=== PATIENT | female | born 1980 | race Caucasian/White ===

== ENCOUNTER → 2016-12-16 | Outpatient (CLI) | payer MEDICAID | LOC: MW.CHOBGYN 10:39 | PROVIDERS: ATTEND Advanced Practice Midwife | DX: Z32.00 Encounter for pregnancy test, result unknown (principal) | CPT/HCPCS: 81025 ==

== ENCOUNTER 2017-08-06 06:35 | Day surgery (SDC) | payer MEDICAID ==
[2017-08-06] MEDS ORDERED: Lactated Ringers 1,000 ML IV SCH (07:00)
[2017-08-06] MEDS ORDERED: Lidocaine 2% 5 ML SDV ONE (07:15)
[2017-08-06] MEDS ORDERED: Midazolam 1 MG/ML 2 ML SDV ONE (07:15)
[2017-08-06] MEDS ORDERED: fentaNYL 100 MCG/2 ML SDV ONE (07:15)
[2017-08-06] MEDS ORDERED: Propofol 200 MG/20 ML SDV ONE ×2 (07:15→08:23)
--- NOTE | 2017-08-06 07:18 | PCM.PREANE ---
Preanesthetic Assessment - Anesthesia/Transfusion/Family Hx Anesthesia History: Prior Anesthesia Without Reaction Family History of Anesthesia Reaction: No Transfusion History: No Prior Transfusion(s) Intubation History: Unknown - Review of Systems General: No Symptoms Pulmonary: No Symptoms Cardiovascular: No Symptoms Gastrointestinal: No Symptoms Neurological: No Symptoms Other: Reports: None - Physical Assessment O2 Sat by Pulse Oximetry: 97 Respiratory Rate: 18 Vital Signs: Last Vital Signs Temp 36.2 C 08/06/17 07:08 Pulse 82 08/06/17 07:08 Resp 18 08/06/17 07:08 BP 103/58 L 08/06/17 07:08 Pulse Ox 97 08/06/17 07:08 Height: 1.57 m Weight: 68.492 kg ASA Class: 1 Mental Status: Alert & Oriented x3 Airway Class: Mallampati = 2 Dentition: Reports: Normal Dentition Thyro-Mental Finger Breadths: 3 Mouth Opening Finger Breadths: 3 ROM/Head Extension: Full Lungs: Clear to Auscultation, Normal Respiratory Effort Cardiovascular: Regular Rate, Regular Rhythm - Lab Values: Laboratory Last Values Urine HCG, Qual NEGATIVE (NEGATIVE) 08/06/17 06:38 - Allergies Allergies/Adverse Reactions: Allergies Allergy/AdvReac Type Severity Reaction Status Date / Time No Known Allergies Allergy Verified 01/20/14 16:24 - Blood Blood Available: No - Anesthesia Plan Pre-Op Medication Ordered: None - Acknowledgements Anesthesia Type Planned: MAC Pt an Appropriate Candidate for the Planned Anesthesia: Yes Alternatives and Risks of Anesthesia Discussed w Pt/Guardian: Yes Pt/Guardian Understands and Agrees with Anesthesia Plan: Yes PreAnesthesia Questionnaire HEENT History: Reports: None Respiratory History: Reports: Other (See Below) Other Respiratory History: asthma as a child Gastrointestinal History: Reports: Hepatitis Other Gastrointestinal History: states hepatitis as a child Genitourinary History: Reports: None 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: - Past Surgical History Head Surgeries/Procedures: Reports: None HEENT Surgical History: Reports: Tonsillectomy Female Surgical History: Reports: Tubal Ligation Musculoskeletal Surgical History: Reports: Other (See Below) Other Musculoskeletal Surgeries/Procedures:: wrist surgery - SUBSTANCE USE Smoking Status *Q: Light Tobacco Smoker (5 cigarettes per day) Days Per Week of Alcohol Use: 0 Recreational Drug Use History: No - HOME MEDS Home Medications: Home Meds Gabapentin [Neurontin] 3 tab PO DAILY 08/04/17 [History] traMADol HCl [Tramadol HCl] 1 tab PO ASDIRECTED PRN 08/04/17 [History] - CURRENT (IN HOUSE) MEDS Current Meds: Current Medications Hydrocodone Bitart/Acetaminophen ([place] 325-5 Mg) 1 tab PO Q4H PRN PRN Reason: Pain Bupivacaine HCl/Epinephrine Bitart (Marcaine 0.25%/Epinephrine 1:200,000) 10 ml INJECT ONETIME ONE Stop: 08/06/17 08:01 Cefazolin Sodium/Dextrose 2 gm (/ Premix) 50 mls @ 100 mls/hr IV ONETIME ONE Stop: 08/06/17 07:59 Lactated Ringer's (Ringers, Lactated) 1,000 mls @ 125 mls/hr IV ASDIRECTED JAVIER Last Admin: 08/06/17 07:10 Dose: 125 mls/hr
[2017-08-06] MEDS ORDERED: Bupivacaine 25%/EPINEPHrine/PF 30 ML ONE (07:22)
[2017-08-06] MEDS ORDERED: ceFAZolin 2 GM in Premix Bag 1 BAG IV ONE (07:30)
[2017-08-06] MEDS ORDERED: Bupivacaine 0.25%/EPINEPHrine 1:200,000 10 ML SDV INJECT ONE (08:00)
[2017-08-06] MEDS ORDERED: fentaNYL 100 MCG/2 ML SDV IVPUSH PRN (08:42)
--- NOTE | 2017-08-06 08:55 | PCM.OPNOTE ---
- General Post-Op/Procedure Note Date of Surgery/Procedure: 08/06/17 Operative Procedure(s): right carpal tunnel release Pre Op Diagnosis: right carpal tunnel syndrome Post-Op Diagnosis: Same Anesthesia Technique: Local, MAC Primary Surgeon: Michelle Torres Telephone Solicitor Supervisor: Carolee Lund Complications: None Condition: Good
[2017-08-06] MEDS ORDERED: Acetaminophen/HYDROcodone 325-5 MG Tab PO PRN (09:00)
[2017-08-06 10:39] VITALS: BP 100/64
--- NOTE | 2017-08-06 18:37 | OR ---
SURGEON: ANDREW ODOM MD DATE OF PROCEDURE: 08/06/2017 PREOPERATIVE DIAGNOSIS: Right carpal tunnel syndrome. POSTOPERATIVE DIAGNOSIS: Right carpal tunnel syndrome. PROCEDURE: Right carpal tunnel release. DECAL CUTTER: None. ANESTHESIA: Local MAC. INDICATIONS: Ms. Anthony is a 36-year-old female who was seen today for right carpal tunnel syndrome. Risks and benefits of release were discussed with her and she was in agreement to proceed. Risks were including, but not limited to, bleeding, infection, damage to underlying or overlying structures, possible need for future interventions, possible scarring. PROCEDURE IN DETAIL: After informed consent was obtained and placed on the chart, the patient was brought to the operating theater and laid in supine position. After adequate local MAC anesthesia was obtained, the area was prepped and draped and a time- out was completed to confirm side and site. Attention was then paid to exsanguination of the arm and insufflation of the tourniquet to 200 mmHg once 0.25% Marcaine with epinephrine had been injected into the area. Once adequately prepared, a 15 blade was then used to dissect through the skin and subcutaneous tissues until breach of the ligament. Once the ligament was breached, dissection was carried distally and proximally under direct visualization. It was irrigated and closed using a 5-0 nylon stitch in a horizontal mattress fashion. It was dressed with Xeroform, fluffs, Kerlix, and a gauze dressing and a 2-inch Eric wrap. The patient tolerated this well. All counts and needles were correct at the end of the case. FOLLOWUP INSTRUCTIONS: The patient will see us in 10 to 14 days, sooner if any problems, questions, or concerns. She was given a prescription for pain control. HEGGTHE / LIZETTL /[id number]
== END 2017-08-06 10:15 | disposition home or self-care (01) ==
LOC: MW.SDS 06:35
PROVIDERS: ATTEND Plastic Surgery
DX: G56.03 Carpal tunnel syndrome, bilateral upper limbs (principal); M25.511 Pain in right shoulder; F17.210 Nicotine dependence, cigarettes, uncomplicated; G89.29 Other chronic pain; Z79.899 Other long term (current) drug therapy; Z90.89 Acquired absence of other organs; Z98.51 Tubal ligation status
CPT/HCPCS: 64721; 81025; A9270; J2250; J3010; J7120; 01810; J2704

== ENCOUNTER 2017-09-17 06:35 | Day surgery (SDC) | payer MEDICAID ==
--- NOTE | 2017-09-17 07:23 | PCM.PREANE ---
Preanesthetic Assessment - Anesthesia/Transfusion/Family Hx Anesthesia History: Prior Anesthesia Without Reaction Family History of Anesthesia Reaction: No Transfusion History: No Prior Transfusion(s) Intubation History: Unknown - Review of Systems General: No Symptoms Pulmonary: No Symptoms Cardiovascular: No Symptoms Gastrointestinal: No Symptoms Neurological: No Symptoms Other: Reports: None - Physical Assessment NPO Status Date: 09/16/17 NPO Status Time: 22:00 O2 Sat by Pulse Oximetry: 99 Respiratory Rate: 16 Vital Signs: Last Vital Signs Temp 36.7 C 09/17/17 06:45 Pulse 91 09/17/17 06:45 Resp 16 09/17/17 06:45 BP 112/57 L 09/17/17 06:45 Pulse Ox 99 09/17/17 06:45 Height: 1.57 m Weight: 68.492 kg ASA Class: 2 Mental Status: Alert & Oriented x3 Airway Class: Mallampati = 2 Dentition: Reports: Normal Dentition Thyro-Mental Finger Breadths: 3 Mouth Opening Finger Breadths: 3 ROM/Head Extension: Full Lungs: Clear to Auscultation, Normal Respiratory Effort Cardiovascular: Regular Rate, Regular Rhythm - Lab Values: Laboratory Last Values Urine HCG, Qual NEGATIVE (NEGATIVE) 09/17/17 06:38 - Allergies Allergies/Adverse Reactions: Allergies Allergy/AdvReac Type Severity Reaction Status Date / Time No Known Allergies Allergy Verified 09/11/17 15:28 - Blood Blood Available: No - Anesthesia Plan Pre-Op Medication Ordered: None - Acknowledgements Anesthesia Type Planned: MAC Pt an Appropriate Candidate for the Planned Anesthesia: Yes Alternatives and Risks of Anesthesia Discussed w Pt/Guardian: Yes Pt/Guardian Understands and Agrees with Anesthesia Plan: Yes PreAnesthesia Questionnaire HEENT History: Reports: None Respiratory History: Reports: Other (See Below) Other Respiratory History: asthma as a child Gastrointestinal History: Reports: Hepatitis Other Gastrointestinal History: states hepatitis as a child Genitourinary History: Reports: None 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: Musculoskeletal History: Reports: Other (See Below) (s/p R CTR 08/07/17 , L CTS) - Past Surgical History Head Surgeries/Procedures: Reports: None HEENT Surgical History: Reports: Tonsillectomy Female Surgical History: Reports: Tubal Ligation Musculoskeletal Surgical History: Reports: Carpal Tunnel, Other (See Below) Other Musculoskeletal Surgeries/Procedures:: wrist surgery, rt carpal tunnel release done 08/07/17 - SUBSTANCE USE Smoking Status *Q: Current Every Day Smoker Days Per Week of Alcohol Use: 1 Recreational Drug Use History: No - HOME MEDS Home Medications: Home Meds Gabapentin [Neurontin] 3 tab PO DAILY PRN 08/04/17 [History] traMADol HCl [Tramadol HCl] 1 tab PO ASDIRECTED PRN 08/04/17 [History] - CURRENT (IN HOUSE) MEDS Current Meds: Current Medications Hydrocodone Bitart/Acetaminophen ([place] 325-5 Mg) 1 tab PO Q4H PRN PRN Reason: Pain Bupivacaine HCl/Epinephrine Bitart (Marcaine 0.25%/Epinephrine 1:200,000) 10 ml INJECT ONETIME ONE Stop: 09/17/17 08:01 Cefazolin Sodium/Dextrose 2 gm (/ Premix) 50 mls @ 100 mls/hr IV ONETIME ONE Stop: 09/17/17 08:29 Lactated Ringer's (Ringers, Lactated) 1,000 mls @ 500 mls/hr IV .BOLUS JAVIER Last Admin: 09/17/17 07:04 Dose: 500 mls/hr
[2017-09-17] MEDS ORDERED: Midazolam 1 MG/ML 2 ML SDV ONE (07:25)
[2017-09-17] MEDS ORDERED: Propofol 200 MG/20 ML SDV ONE (07:25)
[2017-09-17] MEDS ORDERED: fentaNYL 100 MCG/2 ML SDV ONE (07:25)
[2017-09-17] MEDS ORDERED: Bupivacaine 25%/EPINEPHrine/PF 30 ML ONE (07:32)
[2017-09-17] MEDS ORDERED: Lactated Ringers 1,000 ML IV SCH (08:00)
[2017-09-17] MEDS ORDERED: Acetaminophen/HYDROcodone 325-5 MG Tab PO PRN (08:00)
[2017-09-17] MEDS ORDERED: ceFAZolin 2 GM in Premix Bag 1 BAG IV ONE (08:00)
[2017-09-17] MEDS ORDERED: Bupivacaine 0.25%/EPINEPHrine 1:200,000 10 ML SDV INJECT ONE (08:00)
[2017-09-17] MEDS ORDERED: Lidocaine 2% 5 ML SDV ONE (08:03)
--- NOTE | 2017-09-17 08:51 | PCM48HPAN ---
Post Anesthesia Note - EVALUATION WITHIN 48HRS OF ANESTHETIC Vital Signs in Normal Range: Yes Patient Participated in Evaluation: Yes Respiratory Function Stable: Yes Airway Patent: Yes Cardiovascular Function Stable: Yes Hydration Status Stable: Yes Pain Control Satisfactory: Yes Nausea and Vomiting Control Satisfactory: Yes Mental Status Recovered: Yes Resp Rate: 15 - COMMENTS/OBSERVATIONS Free Text/Narrative:: no anesthesia problems
[2017-09-17 09:29] VITALS: BP 102/59
--- NOTE | 2017-09-17 16:24 | PCM.OPNOTE ---
- General Post-Op/Procedure Note Date of Surgery/Procedure: 09/17/17 Operative Procedure(s): left carpal tunnel release Pre Op Diagnosis: left carpal tunnel Post-Op Diagnosis: Same Anesthesia Technique: Local, MAC Primary Surgeon: Michelle Torres Dining Room Hostess: Carolee Lund Complications: None Condition: Good Free Text/Narrative:: Intake & Output 09/17/17 09/17/17 09/17/17 07:59 15:59 23:59 Intake Total 1200 Balance 1200 [id number]
--- NOTE | 2017-09-17 22:01 | OR ---
SURGEON: ANDREW ODOM MD DATE OF PROCEDURE: 09/17/2017 PREOPERATIVE DIAGNOSIS: Left carpal tunnel syndrome. POSTOPERATIVE DIAGNOSIS: Left carpal tunnel syndrome. PROCEDURE: Left carpal tunnel release. FITTER / WELDER: Carolee Lund. ANESTHESIA: Local MAC. INDICATIONS: Ms. Anthony is a 37-year-old female, who has had a carpal tunnel release done on the right side and here for the left side. Risks and benefits were discussed with her and she was in agreement to proceed. Risks were including, but not limited to, bleeding, infection, damage to underlying or overlying structures, possible need for future interventions, possible scarring. PROCEDURE IN DETAIL: After informed consent was obtained and placed on chart, the patient was brought to the operating theater and laid in supine position. After adequate local MAC anesthesia was obtained, the area was prepped and draped, and a time-out was completed to confirm side and site. The arm was exsanguinated. The tourniquet was insufflated to 200 mmHg after injection of local anesthesia. Attention was then paid to dissection over the transverse carpal ligament. A #15 blade was used to dissect through the skin and subcutaneous tissues until breach of the ligament under direct visualization. Under direct visualization, dissection was carried distally and proximally. Once adequately released, the wound was copiously irrigated and closed using 5-0 nylon stitch in a horizontal mattress fashion and dressed with a Xeroform fluffs and a Kerlix gauze dressing along with a 2-inch Eric wrap. The patient tolerated this well. All counts and needles were correct at the end of the case. Tourniquet was deflated at the end of the case. FOLLOWUP INSTRUCTIONS: The patient will see us in 2 weeks for suture removal, sooner if any problems, questions, or concerns. She was given a prescription for Tylenol for pain. HEGGTHE / MODL /[id number]
== END 2017-09-17 09:20 | disposition home or self-care (01) ==
LOC: MW.SDS 06:35
PROVIDERS: ATTEND Plastic Surgery
DX: G56.02 Carpal tunnel syndrome, left upper limb (principal); Z79.899 Other long term (current) drug therapy; F17.200 Nicotine dependence, unspecified, uncomplicated
CPT/HCPCS: 64721; 81025; A9270; J0690; J2250; J3010; J7120; 00790; 01810; J2704

== ENCOUNTER 2017-10-02 10:24 | Emergency (ER) | payer MEDICAID ==
[2017-10-02 10:40] VITALS: BP 123/72
--- NOTE | 2017-10-02 10:40 | EDM.PDOC ---
ED HPI GENERAL MEDICAL PROBLEM - General Chief Complaint: Back Pain or Injury Stated Complaint: FALL Time Seen by Provider: 10/02/17 10:39 Source of Information: Reports: Patient History Limitations: Reports: No Limitations - History of Present Illness INITIAL COMMENTS - FREE TEXT/NARRATIVE: HISTORY AND PHYSICAL: History of present illness: Patient is a 37-year-old female who presents to the emergency room with complaints of tailbone pain. She states she slipped on the step and fell directly on her "bottom" resulting in immediate pain to her tailbone area. She states she had a rollover to her side and slowly get up from that point. Since the fall she has had pain when sitting or putting pressure on her tailbone. She denies any urinary or fecal incontinence or difficulty/concerns. Denies any numbness or tingling to her upper or lower extremities. During the fall, she did not hit her head nor have any loss of consciousness with this fall. States she was unable to sleep last night due to the pain, "I knew I needed to come in and get checked out... because it isn't getting any better". 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 As been using [id number] Tylenol and Aleve without any relief. No other systemic complaints other than her "tailbone". Denies any chance of , partial hysterectomy. Review of systems: As per history of present illness and below otherwise all systems reviewed and negative. Past medical history: As per history of present illness and as reviewed below otherwise noncontributory. Surgical history: As per history of present illness and as reviewed below otherwise noncontributory. Social history: No reported history of drug or alcohol abuse. Family history: As per history of present illness and as reviewed below otherwise noncontributory. Physical exam: General: Well-developed and well-nourished 37 she'll female. Alert and oriented. Nontoxic appearing and in no acute distress. HEENT: Atraumatic, normocephalic, pupils reactive, negative for conjunctival pallor or scleral icterus, mucous membranes moist, throat clear, neck supple, nontender, trachea midline. Lungs: Clear to auscultation, breath sounds equal bilaterally, chest nontender. Heart: S1S2, regular rate and rhythm Abdomen: Soft, nondistended, nontender. Negative for masses or hepatosplenomegaly. Negative for costovertebral tenderness. Pelvis: Stable nontender. Genitourinary: Deferred. Rectal: Deferred. C-spine/Back: No pinpoint vertebral tenderness upon palpation. No crepitus, step -off strepitus deformities noted. She is able to walk heel and toe without any difficulty. Soft tissue swelling to the sacrum area. Skin is intact, warm, dry. Extremities: All extremities per self without difficulty or deficits. Full range of motion and no tenderness with palpation to upper or lower extremities. She is negative for cords or calf pain. Strong Distal pulses. Neurovascular unremarkable. Neuro: Awake, alert, oriented. Cranial nerves II through XII unremarkable. Cerebellum unremarkable. Motor and sensory unremarkable throughout. Exam nonfocal. X-ray shows no sign of dislocation or fractures. We discussed supportive care measures were home. We'll give her a limited amount of [place] for nighttime use. Diclofenac for daytime use. She is aware of medication usage and possible side effects. Denies any questions at this time. Diagnostics: Sacrum/coccyx x-ray Therapeutics: Toradol - declined Impression: Contusion, tailbone Plan: 1. Please use a doughnut tailbone cushion/pillow for sitting for comfort. 2. Please use the prescriptions as directed. Do not take any additional NSAID such as Ibuprofen or Aleve while taking the Cataflam. Take with food. Take [place] for nighttime use only, narcotic. This may cause drowsiness so do not take with driving or needing to be functioning outside of the house. 3. Apply gentle heat/ice for comfort. 4. Follow up with her primary caregiver in the next 1-2 days. Return to the ED as needed and as discussed. Definitive disposition and diagnosis as appropriate pending reevaluation and review of above. Onset Date: 09/29/17 Duration: Day(s): Location: Reports: Pelvis tailbone Pain Score (Numeric/FACES): 9 - Related Data Allergies Allergy/AdvReac Type Severity Reaction Status Date / Time No Known Allergies Allergy Verified 10/02/17 10:32 Home Meds: Home Meds . 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: Musculoskeletal History: Reports: Other (See Below) (s/p R CTR 08/07/17 , L CTS) - Past Surgical History Head Surgeries/Procedures: Reports: None HEENT Surgical History: Reports: Tonsillectomy Female Surgical History: Reports: Tubal Ligation Musculoskeletal Surgical History: Reports: Carpal Tunnel, Other (See Below) Other Musculoskeletal Surgeries/Procedures:: wrist surgery, rt carpal tunnel release done 08/07/17 Social & Family History - Tobacco Use Smoking Status *Q: Current Every Day Smoker Years of Tobacco use: 10 Packs/Tins Daily: 0.5 - Alcohol Use Days Per Week of Alcohol Use: 1 - Recreational Drug Use Recreational Drug Use: No Drug Use in Last 12 Months: No ED ROS GENERAL - Review of Systems Review Of Systems: ROS reveals no pertinent complaints other than HPI. ED EXAM,LOWER BACK PAIN/INJURY - Physical Exam Exam: See Below (See dictation) Course - Vital Signs Last Recorded V/S: Last Vital Signs Temp 98.2 F 10/02/17 10:34 Pulse 90 10/02/17 10:34 Resp 18 10/02/17 10:34 BP 123/72 10/02/17 10:34 Pulse Ox 98 10/02/17 10:34 Departure - Departure Time of Disposition: 11:30 Disposition: Home, Self-Care 01 Clinical Impression: Contusion of coccyx Qualifiers: Encounter type: initial encounter Qualified Code(s): S30.0XXA - Contusion of lower back and pelvis, initial encounter - Discharge Information Instructions: Tailbone Injury, [id number] Referrals: Natalie Colby NP [Primary Care Provider] - Forms: ED Department Discharge Additional Instructions: My general discharge The following information is given to patients seen in the emergency department who are being discharged to home. This information is to outline your options for follow-up care. We provide all patients seen in our emergency department with a follow-up referral. The need for follow-up, as well as the timing and circumstances, are variable depending upon the specifics of your emergency department visit. If you don't have a primary care physician on staff, we will provide you with a referral. We always advise you to contact your personal physician following an emergency department visit to inform them of the circumstance of the visit and for follow-up with them and/or the need for any referrals to a consulting specialist. The emergency department will also refer you to a specialist when appropriate. This referral assures that you have the opportunity for follow-up care with a specialist. All of these measure are taken in an effort to provide you with optimal care, which includes your follow-up. Under all circumstances we always encourage you to contact your private physician who remains a resource for coordinating your care. When calling for follow-up care, please make the office aware that this follow-up is from your recent emergency room visit. If for any reason you are refused follow-up, please contact the [facility] Emergency Department at and asked to speak to the emergency department charge nurse. [facility] [address] [place] [id number] 1. Please use a doughnut tailbone cushion/pillow for sitting for comfort. 2. Please use the prescriptions as directed. Do not take any additional NSAID such as Ibuprofen or Aleve while taking the Cataflam. Take with food. Take [place] for nighttime use only, narcotic. This may cause drowsiness so do not take with driving or needing to be functioning outside of the house. 3. Apply gentle heat/ice for comfort. 4. Follow up with her primary caregiver in the next 1-2 days. Return to the ED as needed and as discussed.
--- NOTE | 2017-10-02 11:19 | CR ---
EXAMINATION: Sacrum and coccyx HISTORY: Fall COMPARISON: None TECHNIQUE: AP and lateral views FINDINGS: The SI joints are symmetric. Bone mineralization is normal. No definite fracture or acute o sseous abnormality demonstrated. Small calcific to metallic density projects over the right aspect pe lvis. The iliopectineal lines are intact. No definite sacral or coccygeal fracture. IMPRESSION: No acute osseous abnormalities identified.
== END 2017-10-02 11:40 | disposition home or self-care (01) ==
LOC: MW.ED 10:24
DX: S30.0XXA Contusion of lower back and pelvis, initial encounter (principal); F17.210 Nicotine dependence, cigarettes, uncomplicated; W01.0XXA Fall on same level from slipping, tripping and stumbling without subsequent striking against object, initial encounter
CPT/HCPCS: 72220; 72220-26; 99283; 99284